=== PATIENT | male | born 1945 | race Caucasian/White ===

== ENCOUNTER 2020-01-26 19:16 | Emergency (ER) | payer MEDICARE ==
[~2020-01-26] VITALS: Ht 175.3 cm; Wt 95.4 kg
[2020-01-26] MEDS ORDERED: IV NORMAL SALINE 1,000ML 1,000 ML IV ONE (19:45)
--- NOTE | 2020-01-26 19:47 | PHYS DOC ---
Past History Past Medical History: Hypertension, Kidney Stones, Other Additional Past Medical Histor: enlarged prostate Past Surgical History: Other Additional Past Surgical Histo: lumbar Alcohol Use: None General Adult EDM: Chief Complaint: DIZZY/LIGHT HEADED HPI: HPI: 74-year-old male presents with fatigue and lightheadedness. Patient drove back from [place] today. When he got out of the vehicle couple times he was feeling very fatigued and worn out. He admits that he might be dehydrated. He does have air-conditioning in his vehicle. The patient felt like this once before but he was having very high blood pressure. His blood pressure on arrival is normal. Patient tells me he did start taking Flomax today to help pass a kidney stone. He does not usually take this medication. He denies fever chills. He denies cough, shortness of breath, chest pain. Review of Systems: Review of Systems: Constitutional: Fatigue. Denies fever or chills Eyes: Denies change in visual acuity HENT: Denies nasal congestion or sore throat Respiratory: Denies cough or shortness of breath Cardiovascular: Denies chest pain or edema GI: Denies abdominal pain, nausea, vomiting, bloody stools or diarrhea : Denies dysuria Musculoskeletal: Denies back pain or joint pain Integument: Denies rash Neurologic: Lightheaded. Denies headache, focal weakness or sensory changes Endocrine: Denies polyuria or polydipsia Lymphatic: Denies swollen glands Psychiatric: Denies depression or anxiety Heart Score: Risk Factors: Risk Factors: DM, Current or recent (<one month) smoker, HTN, HLP, family history of CAD, obesity. Risk Scores: Score 0 - 3: 2.5% MACE over next 6 weeks - Discharge Home Score 4 - 6: 20.3% MACE over next 6 weeks - Admit for Clinical Observation Score 7 - 10: 72.7% MACE over next 6 weeks - Early Invasive Strategies Current Medications: Current Meds: Current Medications Medications (Trade) Dose Ordered Sig/Andrew Start Time Stop Time Status Last Admin Dose Admin Sodium Chloride 1,000 ml @ 1,000 mls/hr 1X ONCE 01/26/20 19:45 01/26/20 20:44 01/26/20 19:40 1,000 MLS/HR Allergies: Allergies: Allergies Coded Allergies Type Severity Reaction Last Updated Verified No Known Drug Allergies 01/26/20 No Physical Exam: PE: Constitutional: Well developed, well nourished, no acute distress, non-toxic appearance. [] HENT: Normocephalic, atraumatic, bilateral external ears normal, oropharynx moist, no oral exudates, nose normal. [] Eyes: PERRLA, EOMI, conjunctiva normal, no discharge. [] Neck: Normal range of motion, no tenderness, supple, no stridor. [] Cardiovascular: Heart rate regular rhythm, no murmur [] Lungs & Thorax: Bilateral breath sounds clear to auscultation [] Abdomen: Bowel sounds normal, soft, no tenderness, no masses, no pulsatile masses. [] Skin: Warm, dry, no erythema, no rash. [] Back: No tenderness, no CVA tenderness. [] Extremities: No tenderness, no cyanosis, no clubbing, ROM intact, no edema. [] Neurologic: Alert and oriented X 3, normal motor function, normal sensory function, no focal deficits noted. [] Psychologic: Affect normal, judgement normal, mood normal. [] Current Patient Data: Vital Signs: Vital Signs Date Time Temp Pulse Resp B/P (MAP) Pulse Ox O2 Delivery O2 Flow Rate FiO2 01/26/20 19:20 98.4 72 22 116/70 (85) 95 Room Air EKG: EKG: Sinus rhythm, rate 69, normal axis, no ST elevation or depression. [] Radiology/Procedures: Radiology/Procedures: [] Impressions: CHEST AP ONLY 01/26/2020 7:23 PM INDICATION: Dizzy COMPARISON: None available TECHNIQUE: Portable frontal view of the chest is provided. FINDINGS: The cardiomediastinal silhouette is within normal limits. There is elevation the right hemidiaphragm. No airspace consolidation is identified. There are no significant pleural effusions. There is no pulmonary vascular congestion. No pneumothorax. No suspicious osseous abnormality. IMPRESSION: There is no acute cardiopulmonary process. Nonspecific elevation the right hemidiaphragm. Comparison with prior films may be of benefit. Electronically signed by: Alexandru Clayton MD (01/26/2020 7:57 PM) [facility] DICTATED AND SIGNED BY: ALEXANDRU CLAYTON MD DATE: 01/26/201956 CC: ANAI MATTHEWS DO; PCP,UNKNOWN ~ Course & Med Decision Making: Course & Med Decision Making Pertinent Labs and Imaging studies reviewed. (See chart for details) The patient's EKG is unremarkable. His labs are unremarkable except for creatinine of 1.8. I have no previous for comparison. He does appear bit dry. I have given him a liter of normal saline. His troponin is negative. He has not felt the urge to urinate. I suspect that he is dehydrated. He is feeling a bit better at this time. He feels able to go home. He is stable for discharge at this time. This could be side effect of his Flomax medication. I have advised that he not take it tomorrow. [] Dragon Disclaimer: Dragon Disclaimer: This electronic medical record was generated, in whole or in part, using a voice recognition dictation system. Departure Departure: Impression: Primary Impression: Lightheadedness Additional Impression: Fatigue Qualified Codes: T73.2XXA - Exhaustion due to exposure, initial encounter Disposition: HOME/RESIDENCE PRIOR TO ADM Condition: STABLE Referrals: PCP,UNKNOWN (PCP) Patient Instructions: Dizziness, [id number], Fatigue Justification of Admission: Justification of Admission: Justification of Admission Dx: N/A ANAI MATTHEWS DO Jan 26, 2020 19:47
[2020-01-26 19:53] LABS: BASO % 1 % (0-3); EOS # 0.2 x10^3/uL (0.0-0.7); EOS % 4 % (0-3); HEMATOCRIT 42.3 % (39.0-53.0); HEMOGLOBIN 14.4 g/dL (13.0-17.5); LYMPH # 1.6 x10^3/uL (1.0-4.8); LYMPH % 31 % (24-48); MEAN CORPUSCULAR HEMOGLOBIN 31 pg (25-35); MEAN CORPUSCULAR HGB CONC 34 g/dL (31-37); MEAN CORPUSCULAR VOLUME 90 fL (79-100); MONO # 0.4 x10^3/uL (0.0-1.1); MONO % 7 % (0-9); NEUT % 58 % (31-73); PLATELET COUNT 194 x10^3/uL (140-400); RED BLOOD COUNT 4.68 x10^6/uL (4.30-5.70); RED CELL DISTRIBUTION WIDTH 13.9 % (11.5-14.5); WHITE BLOOD COUNT 5.1 x10^3/uL (4.0-11.0)
--- NOTE | 2020-01-26 20:00 | RAD ---
CHEST AP ONLY 01/26/2020 7:23 PM INDICATION: Dizzy COMPARISON: None available TECHNIQUE: Portable frontal view of the chest is provided. FINDINGS: The cardiomediastinal silhouette is within normal limits. There is elevation the right hemidiaphragm. No airspace consolidation is identified. There are no significant pleural effusions. There is no pulmonary vascular congestion. No pneumothorax. No suspicious osseous abnormality. IMPRESSION: There is no acute cardiopulmonary process. Nonspecific elevation the right hemidiaphragm. Comparison with prior films may be of benefit. Electronically signed by: Judy Clayton MD (01/26/2020 7:57 PM) [facility]
[2020-01-26 20:03] LABS: CALCIUM 8.7 mg/dL (8.5-10.1); CREATININE 1.8 mg/dL (0.7-1.3); GFR 37.3
[2020-01-26 20:09] LABS: ALBUMIN 3.9 g/dL (3.4-5.0); ALBUMIN/GLOBULIN RATIO 1.2 (1.0-1.7); TOTAL BILIRUBIN 0.4 mg/dL (0.2-1.0)
[2020-01-26 20:10] LABS: TOTAL PROTEIN 7.2 g/dL (6.4-8.2)
[2020-01-26 21:56] VITALS: BP 122/73
--- NOTE | 2020-01-27 10:04 | EKG ---
[address] [address] Test Date: 2020-01-26 Test Time: 19:32:42 Pat Name: ROYER ESCALANTE Department: Room: Gender: M [employer]isher [employer]: : 1945 Requested By: ANAI MATTHEWS Order Number: [id number] Reading MD: Measurements Intervals Tate Rate: 69 P: 34 VA: 164 QRS: 54 QRSD: 74 T: 42 QT: 350 QTc: 376 Interpretive Statements SINUS RHYTHM T ABNORMALITY IN ANTERIOR LEADS ABNORMAL ECG RI6.02 No previous ECG available for comparison
== END 2020-01-26 22:00 | disposition home or self-care (01) ==
LOC: ER 19:16
DX: R42 Dizziness and giddiness (principal); R53.83 Other fatigue; I10 Essential (primary) hypertension; Z87.442 Personal history of urinary calculi
CPT/HCPCS: 36415; 71045; 80053; 84484; 85025; 93005; 96360; 99285; J7030